=== PATIENT | female | born 1945 | race Caucasian/White ===

== ENCOUNTER 2017-05-26 18:54 | Inpatient (IN) | payer MEDICARE, BC ==
[~2017-05-26] VITALS: Ht 166.4 cm; Wt 91.3 kg
[2017-05-26 18:57] VITALS: BP 210/97; PULSE 72; RESP 20; TEMP 98.9; O2SAT 98
[2017-05-26] MEDS ORDERED: MECL-62 PO (19:44)
[2017-05-26] MEDS ORDERED: ARMO120T PO (19:44)
[2017-05-26] MEDS ORDERED: BUPR150XL PO (19:44)
[2017-05-26] MEDS ORDERED: LORA0.5T PO (19:44)
[2017-05-26] MEDS ORDERED: CITA40TA4 PO (19:44)
[2017-05-26] MEDS ORDERED: CETI10 (19:44)
[2017-05-26] MEDS ORDERED: OXYB10TA PO (19:44)
--- NOTE | 2017-05-26 20:19 | PD ---
HPI Chief Complaint: Musculoskeletal Complaint Time Seen by Provider: 19:34 Travel History International Travel<30 days: No Contact w/Intl Traveler<30days: No Traveled to known affect area: No History of Present Illness HPI Patient is a 71-year-old female presents emergency department after a trip and fall leading to left wrist pain. Patient states she was just walking tripped and fell forward and landed on her left wrist on outstretched hand. Denies any head injury neck injury back injury chest injury abdominal injury right upper extremity injury knee injury. Symptoms started about 45 minutes to arrival, she took 600 mg of ibuprofen prior to arrival with minimal relief. PFSH Past Medical History Anxiety: Yes Depression: Yes Diminished Hearing: Yes (deaf right ear) Immune Disorder: Yes (leukopenia) Medical other: Yes (stage 3 chronic kidney disease) Thyroid Disease: Yes Tetanus Vaccination: > 5 Years Influenza Vaccination: Yes ?: Not Past Surgical History Cholecystectomy: Yes Hysterectomy: Yes Other Surgery: Yes (Rhinoplasty, Labrithectomy) Social History Alcohol Use: Yes (occasional) Tobacco Use: No (quit 50 years ago) Substance Use: No Allergies-Medications (Allergen,Severity, Reaction): Coded Allergies: Paper Wasp (Verified Allergy, Unknown, 05/26/17) Penicillins (Verified Allergy, Unknown, SWELLING, 05/26/17) Sulfa (Sulfonamide Antibiotics) (Verified Allergy, Unknown, SWELLING, ) Tetracyclines (Verified Allergy, Unknown, SWELLING, 05/26/17) aspirin (Verified Allergy, Unknown, SWELLING, 05/26/17) bee venom protein (honey bee) (Verified Allergy, Unknown, 05/26/17) codeine (Verified Allergy, Unknown, SWELLING, 05/26/17) corn (Verified Allergy, Unknown, SWELLING, 05/26/17) egg (Verified Allergy, Unknown, SWELLING, 05/26/17) walnut (Verified Allergy, Unknown, SWELLING, 05/26/17) Reported Meds & Prescriptions Reported Meds & Active Scripts Active Reported Wellbutrin Xl 24 HR (Bupropion HCl) 150 Mg Tab 150 Mg PO DAILY Oxybutynin ER 24 HR (Oxybutynin Chloride) 10 Mg Tab 10 Mg PO DAILY Meclizine (Meclizine HCl) 25 Mg Tab 25 Mg PO DIRECTED PRN Lorazepam 0.5 Mg Tab 0.5 Mg PO Q6H PRN Citalopram (Citalopram Hydrobromide) 40 Mg Tab 40 Mg PO DAILY Cetirizine (Cetirizine HCl) 10 Mg Tab 10 Mg DAILY [place] Thyroid (Thyroid) 120 Mg Tab 120 Mg PO DAILY Review of Systems Except as stated in HPI: all other systems reviewed are Neg Physical Exam Narrative GENERAL: Well-developed well-nourished no obvious SKIN: Focused skin assessment warm/dry. HEAD: Atraumatic. Normocephalic. EYES: Pupils equal and round. No scleral icterus. No injection or drainage. ENT: No nasal bleeding or discharge. Mucous membranes pink and moist. NECK: Trachea midline. No JVD. CARDIOVASCULAR: Regular rate and rhythm. No murmur appreciated. RESPIRATORY: No accessory muscle use. Clear to auscultation. Breath sounds equal bilaterally. GASTROINTESTINAL: Abdomen soft, non-tender, nondistended. Hepatic and splenic margins not palpable. MUSCULOSKELETAL: There is an obvious deformity of the left wrist, minimal volar displacement, pulse motor and sensory intact distally and proximally, no tenderness at the elbow or the hand. Patient's bounding radial pulse, cap refill is brisk in all 5 digits in her flexor and extensor tendon are intact. No clubbing. No cyanosis. No edema. NEUROLOGICAL: Awake and alert. No obvious cranial nerve deficits. Motor grossly within normal limits. Normal speech. PSYCHIATRIC: Appropriate mood and affect; insight and judgment normal. Data Data Last Documented VS Vital Signs Date Time Temp Pulse Resp B/P (MAP) Pulse Ox O2 Delivery O2 Flow Rate FiO2 05/26/17 20:38 72 16 197/84 (121) 98 Room Air 05/26/17 18:57 98.9 Orders Orders Wrist, Complete ([id number]) (05/26/17 ) Splint Or Brace Apply/Monitor (05/26/17 20:17) Support Splint (05/26/17 20:43) Electrocardiogram (05/26/17 21:01) Complete Blood Count With Diff (05/26/17 21:01) Comprehensive Metabolic Panel (05/26/17 21:01) Prothrombin Time / Inr (Pt) (05/26/17 21:01) Act Partial Throm Time (Ptt) (05/26/17 21:01) Chest, Single Ap (05/26/17 21:01) Ecg Monitoring (05/26/17 21:01) Iv Access Insert/Monitor (05/26/17 21:01) Oximetry (05/26/17 21:01) Oxygen Administration (05/26/17 21:01) Sodium Chloride 0.9% Flush (Ns Flush) (05/26/17 21:15) Consult Hand Surgery (05/26/17 ) Ct Wrist W/O Contrast (05/26/17 ) Consent (05/26/17 21:06) Npo After Midnight W/ Po Meds (05/27/17 Breakfast) Admit Order (Ed Use Only) (05/26/17 ) Labs Laboratory Tests Test 05/26/17 20:23 White Blood Count 3.2 TH/MM3 Red Blood Count 4.42 MIL/MM3 Hemoglobin 13.3 GM/DL Hematocrit 39.1 % Mean Corpuscular Volume 88.5 FL Mean Corpuscular Hemoglobin 30.1 PG Mean Corpuscular Hemoglobin Concent 34.1 % Red Cell Distribution Width 12.1 % Platelet Count 124 TH/MM3 Mean Platelet Volume 9.7 FL Neutrophils (%) (Auto) 69.2 % Lymphocytes (%) (Auto) 19.2 % Monocytes (%) (Auto) 10.4 % Eosinophils (%) (Auto) 0.7 % Basophils (%) (Auto) 0.5 % Neutrophils # (Auto) 2.3 TH/MM3 Lymphocytes # (Auto) 0.6 TH/MM3 Monocytes # (Auto) 0.3 TH/MM3 Eosinophils # (Auto) 0.0 TH/MM3 Basophils # (Auto) 0.0 TH/MM3 CBC Comment DIFF FINAL Differential Comment Blood Urea Nitrogen 21 MG/DL Random Glucose 110 MG/DL Albumin 4.4 GM/DL Calcium Level 9.3 MG/DL Sodium Level 133 MEQ/L Potassium Level 3.8 MEQ/L Chloride Level 99 MEQ/L Carbon Dioxide Level 26.8 MEQ/L Anion Gap 7 MEQ/L MDM Medical Decision Making Medical Screen Exam Complete: Yes Emergency Medical Condition: Yes Differential Diagnosis Wrist fracture, restraint, wrist sprain, head neck injury excluded clinically, traumatic injury to other body part highly unlikely. Narrative Course Last 24 hours Impressions Chest X-Ray 05/26/172100 Signed Impressions: Service Date/Time: Friday, May 26, 2017 21:11 - CONCLUSION: No acute disease. Fred Marinelli MD Wrist X-Ray 05/26/17 0000 Signed Impressions: Service Date/Time: Friday, May 26, 2017 19:42 - CONCLUSION: Comminuted fracture at the distal radius and fracture at the base of the ulnar styloid. Fred Marinelli MD Patient's x-ray imaging was discussed with Dr. Bridges who would like to admit the patient to [place] for operative repair. She has reviewed the images. The patient was offered pain medication and declined at this time, she states she gets very nauseous with opiates and would like to decline them. Discussed the recommendations with her and she is agreeable. Diagnosis Primary Impression: Distal radius fracture, left Admitting Information Admitting Physician Requests: Admit Condition: Stable Nigel Alfaro MD May 26, 2017 20:18
--- NOTE | 2017-05-26 20:22 | RADRPT ---
EXAM DATE/TIME: 05/26/2017 19:42 [facility] COMPARISON: No previous studies available for comparison. INDICATIONS : Trauma to wrist. MEDICAL HISTORY : None. SURGICAL HISTORY : None. ENCOUNTER: Initial ACUITY: 1 day PAIN SCORE: 8/10 LOCATION: Left upper extremity wrist FINDINGS: There is a comminuted fracture of the distal radius extending into the radiocarpal joint. The distal fragments are angulated and slightly displaced posteriorly. There is also fracturing of the base of t he ulnar styloid. There is chronic hypertrophic change at the first carpometacarpal joint. CONCLUSION: Comminuted fracture at the distal radius and fracture at the base of the ulnar styloid. Fred Marinelli MD on May 26, 2017 at 20:19 Board Certified Radiologist. This report was verified electronically.
[2017-05-26 20:38] VITALS: BP 197/84; PULSE 72; RESP 16; O2SAT 98
[2017-05-26] MEDS ORDERED: SODIUM CHLORIDE 0.9% FLUSH 10 ML FLUSH IVF PRN (21:15)
[2017-05-26] MEDS: SODIUM CHLOR 0.9% 1000 ML INJ 1,000 ML IV SCH (21:19)
[2017-05-26] MEDS ORDERED: MAGNESIUM HYDROXIDE SUSP 30 ML CUP PO PRN (21:30)
[2017-05-26] MEDS ORDERED: LORazepam 0.5 MG TAB PO PRN (21:30)
[2017-05-26] MEDS ORDERED: BISACODYL 10 MG SUPP RECTAL PRN (21:30)
[2017-05-26] MEDS ORDERED: ONDANSETRON HCL 4 MG/2 ML VIAL IVP PRN (21:30)
[2017-05-26] MEDS ORDERED: SENNOSIDES 8.6 MG TAB PO PRN (21:30)
[2017-05-26] MEDS ORDERED: SODIUM CHLORIDE 0.9% FLUSH 10 ML FLUSH IV FLUSH PRN (21:30)
[2017-05-26] MEDS ORDERED: LACTULOSE SYRUP 20 GM/30 ML CUP PO PRN (21:30)
--- NOTE | 2017-05-26 21:58 | RADRPT ---
EXAM DATE/TIME: 05/26/2017 21:11 [facility] COMPARISON: No previous studies available for comparison. INDICATIONS : Pre-op. Evaluate for pneumonia, pneumothorax, or any other communicable diseases. MEDICAL HISTORY : None. SURGICAL HISTORY : None. ENCOUNTER: Initial ACUITY: 1 day PAIN SCORE: 0/10 LOCATION: Bilateral chest FINDINGS: A single view of the chest demonstrates the lungs to be symmetrically aerated without evidence of mas s, infiltrate or effusion. The cardiomediastinal contours are unremarkable. Osseous structures are intact. CONCLUSION: No acute disease. Fred Marinelli MD on May 26, 2017 at 21:55 Board Certified Radiologist. This report was verified electronically.
[2017-05-26 22:27] VITALS: BP 194/83; PULSE 80; RESP 16; O2SAT 98
--- NOTE | 2017-05-26 22:29 | RADRPT ---
EXAM DATE/TIME: 05/26/2017 21:44 [facility] COMPARISON: No previous studies available for comparison. INDICATIONS : Trauma. Fall. Left wrist fracture. RADIATION DOSE: 13.02 CTDIvol (mGy) MEDICAL HISTORY : Renal failure, chronic. SURGICAL HISTORY : Cholecystectomy. Hysterectomy. ENCOUNTER: Initial ACUITY: 1 day PAIN SCALE: 7/10 LOCATION: Left wrist TECHNIQUE: Volumetric scanning of the wrist was performed. Using automated exposure control and adjustment of t he mA and/or kV according to patient size, radiation dose was kept as low as reasonably achievable to obtain optimal diagnostic quality images. DICOM format image data is available electronically for review and comparison. FINDINGS: BONES: There is a comminuted fracture of the distal radius. This includes a vertical component extending to the distal radius into the radiocarpal joint. There is a horizontal component of the distal radial fr acture extending to the distal radial ulnar joint. The distal radial fragments are displaced and angu lated posteriorly. There is fracturing of the base of the ulnar styloid. There is chronic hypertrophic change at the first carpometacarpal joint. JOINTS: The radiocarpal joint is aligned. SOFT TISSUES: Muscles, tendons, and neurovascular structures are grossly unremarkable. No evidence of mass, organi zed fluid collection or foreign body. CONCLUSION: 1. Comminuted distal radial fracture with intra-articular extension. There is dorsal angulation and d isplacement of the distal fragments. 2. Fracture at the base of the ulnar styloid. 3. Chronic hypertrophic change at the first carpometacarpal joint. Fred Marinelli MD on May 26, 2017 at 22:24 Board Certified Radiologist. This report was verified electronically.
[2017-05-26 22:39] LABS: AUTOMATED NEUTROPHIL # 2.3 TH/MM3 (1.8-7.7); BASOPHIL % 0.5 % (0.0-2.0); EOSINOPHIL % 0.7 % (0.0-4.0); HEMATOCRIT 39.1 % (35.0-46.0); HEMOGLOBIN 13.3 GM/DL (11.6-15.3); LYMPH % 19.2 % (9.0-44.0); LYMPHOCYTE # 0.6 TH/MM3 (1.0-4.8); MEAN CELL VOLUME 88.5 FL (80.0-100.0); MEAN CORPUSCULAR HEMOGLOBIN 30.1 PG (27.0-34.0); MEAN CORPUSCULAR HGB CONC 34.1 % (32.0-36.0); MEAN PLATELET VOLUME 9.7 FL (7.0-11.0); MONO % 10.4 % (0.0-8.0); MONOCYTE # 0.3 TH/MM3 (0-0.9); NEUT % 69.2 % (16.0-70.0); PLATELET COUNT 124 TH/MM3 (150-450); RED BLOOD COUNT 4.42 MIL/MM3 (4.00-5.30); RED CELL DISTRIBUTION WIDTH 12.1 % (11.6-17.2); WHITE BLOOD COUNT 3.2 TH/MM3 (4.0-11.0)
[2017-05-26 22:46] LABS: CHLORIDE 99 MEQ/L (98-107); SODIUM (NA) 133 MEQ/L (136-145)
[2017-05-26 22:49] LABS: CALCIUM 9.3 MG/DL (8.5-10.1)
[2017-05-26 22:50] LABS: ALBUMIN 4.4 GM/DL (3.4-5.0); BICARBONATE 26.8 MEQ/L (21.0-32.0); BLOOD UREA NITROGEN 21 MG/DL (7-18); GLUCOSE,RANDOM 110 MG/DL (74-106)
[2017-05-26 22:53] LABS: ALT (GPT) 19 U/L (10-53); AST (GOT) 18 U/L (15-37); GLOMERULAR FILTRATION RATE 41 ML/MIN (>89)
[2017-05-26 22:54] LABS: TOTAL BILIRUBIN ADULT 0.6 MG/DL (0.2-1.0); TOTAL PROTEIN 7.9 GM/DL (6.4-8.2)
[2017-05-26 22:56] LABS: ALKALINE PHOSPHATASE 72 U/L (45-117)
[2017-05-26 23:00] LABS: PROTHROMBIN TIME - PATIENT 10.1 SEC (9.8-11.6)
[2017-05-26 23:26] VITALS: BP 196/92
[2017-05-27] VITALS (9 sets, daily range): BP systolic 128–190; BP diastolic 68–93; PULSE 66–87; RESP 16–18; TEMP 97.4–99.4; O2SAT 96–98
[2017-05-27] MEDS ORDERED: cloNIDine HCL 0.1 MG TAB PO ONE (00:30)
[2017-05-27] MEDS: ACETAMINOPHEN 325 MG TAB PO PRN (00:38)
[2017-05-27 07:49] LABS: HEMATOCRIT 34.7 % (35.0-46.0); HEMOGLOBIN 12.5 GM/DL (11.6-15.3); MEAN CELL VOLUME 87.7 FL (80.0-100.0); MEAN CORPUSCULAR HEMOGLOBIN 31.5 PG (27.0-34.0); MEAN PLATELET VOLUME 9.4 FL (7.0-11.0); PLATELET COUNT 123 TH/MM3 (150-450); RED BLOOD COUNT 3.96 MIL/MM3 (4.00-5.30); RED CELL DISTRIBUTION WIDTH 12.5 % (11.6-17.2); WHITE BLOOD COUNT 2.1 TH/MM3 (4.0-11.0)
--- NOTE | 2017-05-27 08:04 | HHI.HP ---
HPI Service [facility] Primary Care Physician Unknown Admission Diagnosis Distal Radius Fracture Diagnoses: Travel History International Travel<30 Days: No Contact w/Intl Traveler <30 Da: No Traveled to Known Affected Are: No History of Present Illness 71 year old female with history of hypothyroidism, CKD, leukopenia, and depression presenting with left wrist pain after a mechanical fall. The patient reports she was walking with a pizza box in her hand when she tripped over the door threshold and fell on an outstretched left hand. She is right- handed. She denies LOC, headache, back pain, or neck pain. She states she did not injure any other part of her body. She noticed immediate pain and deformity of the wrist. Pain was exacerbated by movement and minimally relieved with Motrin. Pain is currently 5/10. Review of Systems Except as stated in HPI: all other systems reviewed are Neg Past Family Social History Past Medical History Hypothyroidism CKD Leukopenia (longstanding and previously worked up, followed by hematology) Anxiety Depression R sensorineural hearing loss Past Surgical History Cholecystectomy Hysterectomy Rhinoplasty Labyrinthectomy Reported Medications Wellbutrin Xl 24 HR (Bupropion HCl) 150 Mg Tab 150 Mg PO DAILY Oxybutynin ER 24 HR (Oxybutynin Chloride) 10 Mg Tab 10 Mg PO DAILY Meclizine (Meclizine HCl) 25 Mg Tab 25 Mg PO DIRECTED PRN Lorazepam 0.5 Mg Tab 0.5 Mg PO Q6H PRN Citalopram (Citalopram Hydrobromide) 40 Mg Tab 40 Mg PO DAILY Cetirizine (Cetirizine HCl) 10 Mg Tab 10 Mg DAILY [place] Thyroid (Thyroid) 120 Mg Tab 120 Mg PO DAILY Allergies: Coded Allergies: Paper Wasp (Verified Allergy, Unknown, 05/26/17) Penicillins (Verified Allergy, Unknown, SWELLING, 05/26/17) Sulfa (Sulfonamide Antibiotics) (Verified Allergy, Unknown, SWELLING, ) Tetracyclines (Verified Allergy, Unknown, SWELLING, 05/26/17) aspirin (Verified Allergy, Unknown, SWELLING, 05/26/17) bee venom protein (honey bee) (Verified Allergy, Unknown, 05/26/17) codeine (Verified Allergy, Unknown, SWELLING, 05/26/17) corn (Verified Allergy, Unknown, SWELLING, 05/26/17) egg (Verified Allergy, Unknown, SWELLING, 05/26/17) walnut (Verified Allergy, Unknown, SWELLING, 05/26/17) Active Ordered Medications Acetaminophen (Tylenol) 650 mg Q6H PRN PO Last administered on 05/27/17at 00:38; Admin Dose 650 MG; Start 05/26/17 at 21:30 Bisacodyl (Dulcolax Supp) 10 mg DAILY PRN RECTAL; Start 05/26/17 at 21:30 Bupropion HCl (Wellbutrin Sr) 150 mg DAILY PO; Start 05/27/17 at 09:00 Citalopram Hydrobromide (CeleXA) 40 mg DAILY PO; Start 05/27/17 at 09:00 Clonidine (Catapres) 0.1 mg ONCE ONCE PO Last administered on 05/27/17at 00:39; Admin Dose 0.1 MG; Start 05/27/17 at 00:30; Stop 05/27/17 at 00:35; Status DC Lactulose (Lactulose Liq) 30 ml DAILY PRN PO; Start 05/26/17 at 21:30 Lorazepam (Ativan) 0.5 mg Q6H PRN PO; Start 05/26/17 at 21:30 Magnesium Hydroxide (Milk Of Magnesia Liq) 30 ml Q12H PRN PO; Start 05/26/17 at 21:30 Morphine Sulfate (Morphine Inj) 2 mg Q3H PRN IV PUSH; Start 05/26/17 at 21:30 Ondansetron HCl (Zofran Inj) 4 mg Q6H PRN IVP; Start 05/26/17 at 21:30 Senna/Docusate Sodium (Brooke-Colace) 1 tab BID PO; Start 05/27/17 at 09:00 Sennosides (Senokot) 17.2 mg Q12H PRN PO; Start 05/26/17 at 21:30 Sodium Chloride 1,000 ml @ 100 mls/hr Q10H IV Last administered on 05/26/17at 21: 19; Admin Dose 100 MLS/HR; Start 05/26/17 at 21:19 Sodium Chloride (NS Flush) 2 ml BID IV FLUSH; Start 05/27/17 at 09:00 Sodium Chloride (NS Flush) 2 ml UNSCH PRN IV FLUSH; Start 05/26/17 at 21:30 Sodium Chloride (NS Flush) 2 ml UNSCH PRN IVF; Start 05/26/17 at 21:15; Stop 05/26/17 at 21:32; Status DC Thyroid ([place] Thyroid) 120 mg DAILY PO; Start 05/27/17 at 09:00 Tolterodine Tartrate (Detrol La) 4 mg DAILY PO; Start 05/27/17 at 09:00 Family History Heart disease, breast cancer, hypothyroidism, rheumatoid arthritis Social History Lives in [place] with but has been down in [place] for a month while helping out with her grandchild EtOH: occasional but not daily Tobacco: smoked briefly as a teenager Illicit drugs: denies Physical Exam Vital Signs Vital Signs Date Time Temp Pulse Resp B/P (MAP) Pulse Ox O2 Delivery O2 Flow Rate FiO2 05/27/17 04:00 99.0 66 16 151/72 (98) 96 05/27/17 01:09 99.4 81 18 190/83 (118) 97 05/26/17 23:26 80 16 196/92 (126) 97 05/26/17 22:27 Room Air 05/26/17 22:27 Room Air 05/26/17 22:27 80 16 194/83 (120) 98 Room Air 05/26/17 20:38 72 16 197/84 (121) 98 Room Air 05/26/17 18:57 98.9 72 20 210/97 (134) 98 Physical Exam GENERAL: Well-nourished, well-developed pleasant female laying in bed in no apparent distress. SKIN: No rashes, ecchymoses or lesions. Cool and dry. HEENT: Atraumatic. Normocephalic. No temporal or scalp tenderness. Pupils equal round and reactive. Extraocular motions intact. No scleral icterus. No injection or drainage. Nose without bleeding, purulent drainage or septal hematoma. Throat without erythema, tonsillar hypertrophy or exudate. Uvula midline. Airway patent. NECK: Trachea midline. No JVD or lymphadenopathy. Supple, nontender, no meningeal signs. CARDIOVASCULAR: Regular rate and rhythm with soft 1/6 VAL. RESPIRATORY: Clear to auscultation. Breath sounds equal bilaterally. No wheezes , rales, or rhonchi. GASTROINTESTINAL: Abdomen soft, nontender, nondistended. No guarding. MUSCULOSKELETAL: Extremities without clubbing, cyanosis, or edema. No joint tenderness, effusion, or edema noted with the exception of her right forearm/ arm which is wrapped in a CARLOS-wrap and in a sling. Able to wiggle left fingers and neurovascular intact. No calf tenderness. Negative Homans sign bilaterally. NEUROLOGICAL: Awake and alert. Motor and sensory grossly within normal limits. Normal speech. Laboratory Laboratory Tests Test 05/26/17 20:23 05/27/17 07:33 White Blood Count 3.2 2.1 Red Blood Count 4.42 3.96 Hemoglobin 13.3 12.5 Hematocrit 39.1 34.7 Mean Corpuscular Volume 88.5 87.7 Mean Corpuscular Hemoglobin 30.1 31.5 Mean Corpuscular Hemoglobin Concent 34.1 36.0 Red Cell Distribution Width 12.1 12.5 Platelet Count 124 123 Mean Platelet Volume 9.7 9.4 Neutrophils (%) (Auto) 69.2 Lymphocytes (%) (Auto) 19.2 Monocytes (%) (Auto) 10.4 Eosinophils (%) (Auto) 0.7 Basophils (%) (Auto) 0.5 Neutrophils # (Auto) 2.3 Lymphocytes # (Auto) 0.6 Monocytes # (Auto) 0.3 Eosinophils # (Auto) 0.0 Basophils # (Auto) 0.0 CBC Comment DIFF FINAL AUTO DIFF Differential Comment Prothrombin Time 10.1 Prothromb Time International Ratio 1.0 Activated Partial Thromboplast Time 25.0 Blood Urea Nitrogen 21 Creatinine 1.30 Random Glucose 110 Total Protein 7.9 Albumin 4.4 Calcium Level 9.3 Alkaline Phosphatase 72 Aspartate Amino Transf (AST/SGOT) 18 Alanine Aminotransferase (ALT/SGPT) 19 Total Bilirubin 0.6 Sodium Level 133 Potassium Level 3.8 Chloride Level 99 Carbon Dioxide Level 26.8 Anion Gap 7 Estimat Glomerular Filtration Rate 41 Result Diagram: 05/27/17 0733 05/26/172022 Imaging Chest X-Ray 05/26/172100 Signed Impressions: Service Date/Time: Friday, May 26, 2017 21:11 - CONCLUSION: No acute disease. Fred Marinelli MD Wrist X-Ray 05/26/17 0000 Signed Impressions: Service Date/Time: Friday, May 26, 2017 19:42 - CONCLUSION: Comminuted fracture at the distal radius and fracture at the base of the ulnar styloid. Fred Marinelli MD Upper Extremity CT 05/26/17 0000 Signed Impressions: Service Date/Time: Friday, May 26, 2017 21:44 - CONCLUSION: 1. Comminuted distal radial fracture with intra-articular extension. There is dorsal angulation and displacement of the distal fragments. 2. Fracture at the base of the ulnar styloid. 3. Chronic hypertrophic change at the first carpometacarpal joint. Fred Marinelli MD Caprini VTE Risk Assessment Caprini VTE Risk Assessment: Mod/High Risk (score >= 2) Caprini Risk Assessment Model Point Value = 1 Point Value = 2 Point Value = 3 Point Value = 5 Age 41-60 Minor surgery BMI > 25 kg/m2 Swollen legs Varicose veins or History of unexplained or recurrent spontaneous Oral contraceptives or hormone replacement Sepsis (< 1 month) Serious lung disease, including pneumonia (< 1 month) Abnormal pulmonary function Acute myocardial infarction Congestive heart failure (< 1 month) History of inflammatory bowel disease Medical patient at bed rest Age 61-74 Arthroscopic surgery Major open surgery (> 45 min) Laparoscopic surgery (> 45 min) Malignancy Confined to bed (> 72 hours) Immobilizing plaster cast Central venous access Age >= 75 History of VTE Family history of VTE Factor V Leiden Prothrombin [id number] Lupus anticoagulant Anticardiolipin antibodies Elevated serum homocysteine Heparin-induced thrombocytopenia Other congenital or acquired thrombophilia Stroke (< 1 month) Elective arthroplasty Hip, pelvis, or leg fracture Acute spinal cord injury (< 1 month) Prophylaxis Regimen Total Risk Factor Score Risk Level Prophylaxis Regimen 0-1 Low Early ambulation 2 Moderate Order ONE of the following: *Sequential Compression Device (SCD) *Heparin 5000 units SQ BID 3-4 Higher Order ONE of the following medications: *Heparin 5000 units SQ TID *Enoxaparin/Lovenox 40 mg SQ daily (WT < 150 kg, CrCl > 30 mL/min) *Enoxaparin/Lovenox 30 mg SQ daily (WT < 150 kg, CrCl > 10-29 mL/min) *Enoxaparin/Lovenox 30 mg SQ BID (WT < 150 kg, CrCl > 30 mL/min) AND/OR *Sequential Compression Device (SCD) 5 or more Highest Order ONE of the following medications: *Heparin 5000 units SQ TID (Preferred with Epidurals) *Enoxaparin/Lovenox 40 mg SQ daily (WT < 150 kg, CrCl > 30 mL/min) *Enoxaparin/Lovenox 30 mg SQ daily (WT < 150 kg, CrCl > 10-29 mL/min) *Enoxaparin/Lovenox 30 mg SQ BID (WT < 150 kg, CrCl > 30 mL/min) AND *Sequential Compression Device (SCD) Assessment and Plan Problem List: (1) Distal radius fracture, left ICD Code: S52.502A - Unspecified fracture of the lower end of left radius, initial encounter for closed fracture Status: Acute Assessment and Plan 71 year old female with history of hypothyroidism, leukopenia, CKD, and depression admitted for L wrist fracture after a mechanical fall. 1. Radioulnar fracture - XR demonstrates comminuted fracture of distal radius and fracture at the base of the ulnar styloid - Orthopedic surgery consulted, planning for operative repair - NPO - Pain control 2. Hypothyroidism - Resume home armor thyroid 3. CKD, stage III - Avoid nephrotoxic agents - Renally dose medications 4. Leukopenia - Stable - Followed by heme as oupatient DVT prophylaxis: Hold chemical anticoagulation for surgery Code Status FULL Discussed Condition With Patient Physician Certification 2 Midnight Certification Type: Admission for Inpatient Services Order for Inpatient Services The services are ordered in accordance with Medicare regulations or non- Medicare payer requirements, as applicable. In the case of services not specified as inpatient-only, they are appropriately provided as inpatient services in accordance with the 2-midnight benchmark. Estimated LOS (days): 2 2 days is the estimated time the patient will need to remain in the hospital, assuming treatment plan goals are met and no additional complications. Post-Hospital Plan: Home Jaylene Vnison MD May 27, 2017 08:04
[2017-05-27 08:09] LABS: CHLORIDE 102 MEQ/L (98-107); SODIUM (NA) 135 MEQ/L (136-145)
[2017-05-27 08:37] LABS: LYMPHOCYTES 46 % (9-44); MONOCYTES 17 % (0-8); NEUTROPHIL # MANUAL DIFF 0.8 TH/MM3 (1.8-7.7); POLYS (SEG NEUTROPHILS) 37 % (16-70)
[2017-05-27 08:41] LABS: ALBUMIN 3.6 GM/DL (3.4-5.0); ALKALINE PHOSPHATASE 61 U/L (45-117); ALT (GPT) 15 U/L (10-53); AST (GOT) 15 U/L (15-37); BICARBONATE 25.6 MEQ/L (21.0-32.0); BLOOD UREA NITROGEN 14 MG/DL (7-18); CALCIUM 8.8 MG/DL (8.5-10.1); CREATININE 0.97 MG/DL (0.50-1.00); GLOMERULAR FILTRATION RATE 57 ML/MIN (>89); GLUCOSE,RANDOM 99 MG/DL (74-106); TOTAL BILIRUBIN ADULT 0.8 MG/DL (0.2-1.0); TOTAL PROTEIN 6.8 GM/DL (6.4-8.2)
[2017-05-27] MEDS ORDERED: LACTATED RINGER'S 1000 ML INJ 1,000 ML ONE (08:49)
[2017-05-27] MEDS ORDERED: MIDAZOLAM HCL 5 MG/ML VIAL (1 ML) ONE (08:49)
[2017-05-27] MEDS ORDERED: CLINDAMYCIN 600 MG/NS PREMIX 50 ML IV ONE (09:15)
[2017-05-27] MEDS ORDERED: LIDOCAINE HCL 2% 50 ML VIAL ONE (09:33)
[2017-05-27] MEDS ORDERED: BACITRACIN TOP OINT 15 GM TUBE ONE (09:33)
--- NOTE | 2017-05-27 12:31 | RADRPT ---
EXAM DATE/TIME: 05/27/2017 09:54 [facility] COMPARISON: WRIST LEFT COMPLETE ([id number]), May 26, 2017, 19:42. INDICATIONS : Left wrist ORIF. MEDICAL HISTORY : None. SURGICAL HISTORY : None. ENCOUNTER: Initial ACUITY: 1 day PAIN SCORE: Non-responsive. LOCATION: Left Wrist. FINDINGS: Multiple fluoroscopic views of the fractured left radius and ulna are performed for open reduction in ternal fixation. Surgical plate and screws traverse the distal radial fracture with ultimate good rhina tomic alignment. CONCLUSION: Status post left wrist ORIF with ultimate good anatomic alignment.. Jenny Brown MD on May 27, 2017 at 12:27 Board Certified Radiologist. This report was verified electronically.
--- NOTE | 2017-05-27 13:42 | PD.ORT.PN ---
Subjective Subjective Remarks Patient comfortable in PACU. s/p regional block. Spoke with over the phone about procedure. Objective Vitals Vital Signs Date Time Temp Pulse Resp B/P (MAP) Pulse Ox O2 Delivery O2 Flow Rate FiO2 05/27/17 13:30 70 14 159/66 (97) 100 Nasal Cannula 2 05/27/17 13:15 69 14 150/60 (90) 100 Nasal Cannula 2 05/27/17 13:00 73 14 144/64 (90) 100 Nasal Cannula 2 05/27/17 12:54 76 05/27/17 12:54 97.7 76 14 153/77 (102) 97 Nasal Cannula 2 05/27/17 09:20 80 05/27/17 09:20 98 Nasal Cannula 2 05/27/17 08:58 74 05/27/17 08:58 98 Nasal Cannula 2 05/27/17 08:30 98.1 69 18 154/68 (96) 95 05/27/17 08:00 98.1 69 18 154/68 (96) 96 05/27/17 04:00 99.0 66 16 151/72 (98) 96 05/27/17 01:09 99.4 81 18 190/83 (118) 97 05/26/17 23:26 80 16 196/92 (126) 97 05/26/17 22:27 Room Air 05/26/17 22:27 Room Air 05/26/17 22:27 80 16 194/83 (120) 98 Room Air 05/26/17 20:38 72 16 197/84 (121) 98 Room Air 05/26/17 18:57 98.9 72 20 210/97 (134) 98 I/O 05/26/17 05/26/17 05/26/17 05/27/17 05/27/17 05/27/17 07:00 15:00 23:00 07:00 15:00 23:00 Intake Total 900 ml Output Total 100 ml Balance 800 ml Intake Other 900 ml Output Urine Total 0 ml Estimated Blood Loss 100 ml # Voids 3 # Bowel Movements 0 Result Diagram: 05/27/17 0733 05/27/17 0733 Other Results Laboratory Tests Test 05/26/17 20:23 Prothromb Time International Ratio 1.0 RATIO Prothrombin Time 10.1 SEC (9.8-11.6) Imaging Last 24 hours Impressions Wrist X-Ray 05/27/17 0000 Signed Impressions: Service Date/Time: Saturday, May 27, 2017 09:54 - CONCLUSION: Status post left wrist ORIF with ultimate good anatomic alignment.. Jenny Brown MD Chest X-Ray 05/26/172100 Signed Impressions: Service Date/Time: Friday, May 26, 2017 21:11 - CONCLUSION: No acute disease. Fred Marinelli MD Objective Remarks Sugartong splint in place, <2 sec capillary refill to fingers, unable to assess sensation or motor function due to block Assessment & Plan Assessment and Plan 71yF pmhx significant for leukopenia and CKD POD0 s/p ORIF L distal radius fracture & left carpal tunnel release -Pain management per primary team -Will consider hematology consult due to leukopenia -NWB left wrist, elevate left hand -Possible d/c home tomorrow with 2 week followup in office Sally Bridges MD May 27, 2017 13:42
--- NOTE | 2017-05-27 13:53 | MB ---
cc: Sally Bridges MD DATE: 05/27/2017 REASON FOR CONSULTATION: Closed displaced left distal radius fracture. HISTORY OF PRESENT ILLNESS: Uma Muñoz is a pleasant 71-year-old right hand dominant female who lives in [place] who was visiting her children and grandchildren and will be here until approximately June or July, who accidentally sustained a mechanical fall last evening on 05/26/2017 onto her left wrist. She presented to the emergency room for evaluation. I was called for consult. The patient denied significant paresthesias in the hand. She reports an old injury to the left wrist, but nothing recent. She does have a past medical history significant for leukopenia. She also has a history of chronic kidney disease. She reports pain over the left wrist. She was placed into a splint by the emergency room. PAST MEDICAL HISTORY: Hypothyroidism, chronic kidney disease, leukopenia, hearing loss. PAST SURGICAL HISTORY: Cholecystectomy, hysterectomy, rhinoplasty, labyrinthectomy. MEDICATIONS: Wellbutrin, oxybutynin, meclizine, citalopram. ALLERGIES: PENICILLIN, SULFA, TETRACYCLINE, ASPIRIN. PHYSICAL EXAMINATION: The patient is alert and oriented. Exam of the left upper extremity shows a splint in place. Sensation intact in the median, ulnar and radial distribution. Less than 2 second capillary refill. The patient is able to wiggle the fingers. Splint left in place until planned surgery. IMAGING: X-rays and CT scan show a closed intra-articular significantly displaced distal radius fracture. ASSESSMENT AND PLAN: A 71-year-old right hand dominant female, 1 day status post closed significantly displaced and comminuted left distal radius fracture. Past medical history is significant for leukopenia and chronic kidney disease. Treatment options discussed with the patient. She elected to proceed with surgical intervention. Risks were explained but not limited to wound complications, infection, nonunion, malunion, need for hardware removal, paresthesias and she elected to proceed. This was planned for today after she was cleared by medicine. It was discussed with the patient she is at a higher than normal risk for infection due to her leukopenia. Consider consulting hematology oncology. Sally Bridges MD [facility]/ , 01:29 PM , 01:52 PM MARISSA
--- NOTE | 2017-05-27 14:08 | MP ---
cc: Sally Bridges MD DATE OF OPERATION: PREOPERATIVE DIAGNOSIS: Closed intraarticular displaced greater than 3-part left distal radius fracture. POSTOPERATIVE DIAGNOSIS: Closed intraarticular displaced greater than 3-part left distal radius fracture. PROCEDURE: 1. Open reduction and internal fixation left distal radius fracture, greater than 3-part. 2. Left carpal tunnel release. 3. Application of allograft bone graft. SURGEON: Dr. Sally Bridges. ANESTHESIA: Regional and sedation. TOURNIQUET TIME: 126 minutes at 200 mmHg. IMPLANTS: One Synthes volar rim plate with combination of nonlocking and locking screws. INDICATION FOR PROCEDURE: Uma Muñoz is a pleasant 71-year-old right hand dominant female who presented to the emergency room yesterday with a closed significantly displaced left distal radius fracture. The patient has a past medical history significant for leukopenia, as well as chronic kidney disease. She elected to proceed with surgical intervention. She understands there are multiple surgical options including closed reduction and pinning, open reduction internal fixation and dorsal spanning plate and she elected to proceed. Risks were explained but not limited to wound complications, infection, nonunion and malunion, and need for hardware removal, need for additional surgeries and she elected to proceed. DESCRIPTION OF PROCEDURE: The patient was identified in the preoperative holding area and the correct extremity was marked. The patient was taken to the operating room where anesthesia was induced. Left upper extremity was prepped and draped in normal sterile fashion. Dr. Freed of Anesthesia performed a regional block. Under fluoroscopy, there was a closed intra-articular displaced distal radius fracture with a large radial styloid piece which was radially displaced, as well as a lunate facet piece. The patient lives in [place], so I was concerned about placing a dorsal spanning plate as the patient would have to obtain a followup for removal of the plate. The decision was made to start with a standard volar approach. Tourniquet was inflated to 200 mmHg for 126 minutes. A standard volar approach was utilized. Flexor carpi radialis tendon sheath was incised. Care was taken to protect the radial artery and median nerve, as well as flexor pollicis longus. The pronator quadratus was incised. The fracture was identified. Again, there was a radial styloid piece as well as a lunate facet piece with significant comminution. Using manual traction and K-wires the fracture was reduced. I was unable to hold the fracture with a standard Synthes plate. I decided to proceed with a Synthes volar rim plate. This had good capture of the fragments. I proceeded with using the Synthes volar rim plate. Again, initially the plate was held in place with K-wires and then a nonlocking screw was placed into the shaft. A combination of locking screws was placed with at least 2 screws in both the radial styloid and ulnar fragments. This had good stability with flexion and extension of the wrist under direct inspection. The remainder of the locking screws were placed. A carpal tunnel release was performed to prevent any problems with the carpal tunnel especially since I used the volar rim plate which is more distal. A standard incision was made in line with the radial border of the ring finger. Palmar fascia was identified and incised. Transverse carpal ligament was identified and incised. Care was taken to protect the ulnar nerve, ulnar artery, palmar arch and to completely decompress the antebrachial fascia. Tourniquet was released. Hemostasis was obtained. The patient had less than 2 second capillary refill to the fingers. The carpal tunnel incision was closed with 5-0 nylon. Some DBX Synthes allograft bone graft was placed around the fracture. The skin was closed with 3-0 and 4-0 Monocryl and Steri-Strips. The patient was placed into a sugar-tong splint and awoken from anesthesia without any complications. She will remain in the hospital on the antibiotics. I will consult Hematology/Oncology. When she is discharged I will see her in approximately two weeks in the office. Continue to follow her while she is here hopefully through June or July. Sally Bridges MD [facility] , 01:34 PM , 02:07 PM MARISSA
[2017-05-27] MEDS ORDERED: LACTATED RINGER'S 1000 ML IV PRN (14:15)
[2017-05-27] MEDS ORDERED: SODIUM CHLORID 0.9% 500 ML IV PRN (14:15)
[2017-05-27] MEDS ORDERED: POVIDONE IODINE 5% (ANTISEPSIS KIT) 4 APPLICATIONS EACH NARE PRN (14:15)
[2017-05-27] MEDS ORDERED: CHLORHEXIDINE GLUCONATE 2 % 1 PACK (2 CLOTHS) TOPICAL PRN (14:15)
[2017-05-27] MEDS ORDERED: METOPROLOL TARTRATE 25 MG TAB PO PRN (14:15)
[2017-05-27] MEDS: TOLTERODINE TARTRATE 4 MG CAP LA PO SCH (14:29)
[2017-05-27] MEDS: buPROPion HCL 150 MG SUSTAINED RELEASE TAB PO SCH (14:29)
[2017-05-27] MEDS: THYROID 60 MG TAB PO SCH (14:29)
[2017-05-27] MEDS: SODIUM CHLORIDE 0.9% FLUSH 10 ML FLUSH IV FLUSH SCH ×2 (14:30→21:00)
[2017-05-27] MEDS: DOCUSATE SODIUM 50 MG/SENNA 8.6 MG TAB PO SCH ×2 (14:30→21:00)
[2017-05-27] MEDS: SODIUM CHLOR 0.9% 1000 ML INJ 1,000 ML IV SCH ×2 (14:30→17:53)
[2017-05-27] MEDS: CITALOPRAM HYDROBROMIDE 40 MG TAB PO SCH (14:30)
[2017-05-27] MEDS: CLINDAMYCIN 600 MG/NS PREMIX 50 ML IV SCH (18:03)
[2017-05-28] VITALS: BP 156/73; PULSE 80; RESP 18; TEMP 98.6; O2SAT 98
[2017-05-28] MEDS: MORPHINE SULFATE 2 MG/ML SYRINGE IV PUSH PRN ×6 (00:05→21:50)
[2017-05-28] MEDS: SODIUM CHLOR 0.9% 1000 ML INJ 1,000 ML IV SCH (00:06)
[2017-05-28] MEDS: CLINDAMYCIN 600 MG/NS PREMIX 50 ML IV SCH (00:06)
[2017-05-28] MEDS ORDERED: MORPHINE SULFATE 4 MG/ML INJ IV PUSH ONE (02:00)
[2017-05-28 04:00] VITALS: BP 158/80; PULSE 82; RESP 18; TEMP 99.2; O2SAT 97
[2017-05-28 08:00] VITALS: BP 157/77; PULSE 77; RESP 18; TEMP 100.1; O2SAT 93
[2017-05-28] MEDS: buPROPion HCL 150 MG SUSTAINED RELEASE TAB PO SCH (09:00)
[2017-05-28] MEDS: DOCUSATE SODIUM 50 MG/SENNA 8.6 MG TAB PO SCH ×2 (09:00→21:49)
[2017-05-28] MEDS: SODIUM CHLORIDE 0.9% FLUSH 10 ML FLUSH IV FLUSH SCH ×2 (09:00→21:49)
--- NOTE | 2017-05-28 09:32 | EKG ---
Date Performed: 05/26/2017 Time Performed: 21:34:32 PTAGE: 71 years EKG: Sinus rhythm Borderline increased QRS voltage for LVH Possible inferior wall myocardial infarction of undetermine d age NO PREVIOUS TRACING DOCTOR: Richie Luis Interpretating Date/Time 05/28/2017 09:30:48
--- NOTE | 2017-05-28 09:41 | HHI.PR ---
Subjective Remarks Patient seen and examined today for follow-up on distal radius fracture. Patient states that the pain is controlled with the morphine. I did discuss with her that need to try to convert her to p.o. medication for longer acting pain control. Patient does understand. She denies any new complaints. Vital signs are stable, patient remains afebrile. Objective Vitals Vital Signs Date Time Temp Pulse Resp B/P (MAP) Pulse Ox O2 Delivery O2 Flow Rate FiO2 05/28/17 08:00 100.1 77 18 157/77 (103) 93 05/28/17 04:00 99.2 82 18 158/80 (106) 97 05/28/17 00:00 98.6 80 18 156/73 (100) 98 05/27/17 20:00 97.4 74 16 144/69 (94) 98 05/27/17 16:00 98.7 87 18 128/93 (105) 97 05/27/17 13:45 98.6 70 14 159/66 (97) 96 Room Air 05/27/17 13:45 70 05/27/17 13:30 70 14 159/66 (97) 100 Nasal Cannula 2 05/27/17 13:15 69 14 150/60 (90) 100 Nasal Cannula 2 05/27/17 13:00 73 14 144/64 (90) 100 Nasal Cannula 2 05/27/17 12:54 76 05/27/17 12:54 97.7 76 14 153/77 (102) 97 Nasal Cannula 2 I/O 05/27/17 05/27/17 05/27/17 05/28/17 05/28/17 05/28/17 07:00 15:00 23:00 07:00 15:00 23:00 Intake Total 2050 ml 1490 ml 200 ml Output Total 100 ml 300 ml Balance 1950 ml 1190 ml 200 ml Intake Oral 0 ml 840 ml 200 ml IV Total 1050 ml 650 ml Other 1000 ml Output Urine Total 0 ml 300 ml Estimated Blood Loss 100 ml # Voids 3 5 # Bowel Movements 0 Result Diagram: 05/27/1773205/27/17732 Objective Remarks GENERAL: Well-developed, well-nourished, in no acute distress. alert and orientated HEENT: Head is normocephalic without any lesions or masses noted. Facial features are symmetric. Eyes: Extraocular muscles are intact. Conjunctivae were clear. NECK: Supple without any masses. Trachea midline no deviation. No JVD, CARDIAC: Regular rhythm, regular rate. S1/S2 are heard. No murmurs gallops or rubs. LUNGS: Clear to auscultation bilaterally. No wheeze, rhonchi or rales. No use of accessory muscles on inspiration or expiration. ABDOMEN: Soft, nontender. Nondistended. Bowel sounds heard in all 4 quadrants. No organomegaly or masses. Negative rebound, negative guarding EXTREMITIES: No edema, pulses are equal bilaterally. No cyanosis or clubbing. Left upper extremity with cast and sling NEUROLOGY: Mood and affect appear appropriate. Cranial nerves II through XII grossly intact. Moving all extremities, speech is clear Urinary Catheter: No Vascular Central Line Catheter: No A/P Assessment and Plan Left upper extremity radioulnar fracture X-ray indicated comminuted fracture of distal radius and fracture at the base of the ulnar styloid Orthopedic surgery consulted and patient underwent surgical intervention Continue pain control Leukopenia Absolute neutrophil count 777, Continue follow CBC Obtain outside records from patient's outpatient warrant clerk Discussed with warrant clerk who stated the patient is appropriate for inpatient or outpatient consult and possible reevaluation with bone marrow biopsy Hypothyroidism Replacement therapy has been continued Chronic kidney disease stage III Renal functions are improving Continue monitor electrolytes and replace as needed Anxiety Home medications have been continued Ativan as needed DVT prevention Sequential compression devices Discharge Planning Discharge planning once cleared by orthopedist and pain control Bienvenido [place] May 28, 2017 09:41
[2017-05-28] MEDS ORDERED: traMADol HCL 50 MG TAB PO PRN ×2 (09:45)
[2017-05-28] MEDS: THYROID 60 MG TAB PO SCH (10:05)
[2017-05-28] MEDS: TOLTERODINE TARTRATE 4 MG CAP LA PO SCH (10:06)
[2017-05-28] MEDS: CITALOPRAM HYDROBROMIDE 40 MG TAB PO SCH (10:06)
[2017-05-28] MEDS: amLODIPine BESYLATE 5 MG TAB PO SCH (10:40)
[2017-05-28 12:00] VITALS: BP 159/83; PULSE 76; RESP 20; TEMP 99.1; O2SAT 92
[2017-05-28] MEDS ORDERED: oxyCODONE/ACETAMINOPHEN 10 MG/325 MG TAB PO PRN (17:00)
[2017-05-28] MEDS ORDERED: oxyCODONE/ACETAMINOPHEN 5 MG/325 MG TAB PO PRN (17:00)
[2017-05-28 18:00] VITALS: BP 151/74; PULSE 78; RESP 16; TEMP 95.7; O2SAT 93
[2017-05-28 20:00] VITALS: BP 120/61; PULSE 68; RESP 18; TEMP 97.7; O2SAT 98
--- NOTE | 2017-05-28 22:32 | PD.ORT.PN ---
Subjective Subjective Remarks Patient reports pain controlled. Denies paresthesias. Has been keeping arm in sling. Objective Vitals Vital Signs Date Time Temp Pulse Resp B/P (MAP) Pulse Ox O2 Delivery O2 Flow Rate FiO2 05/28/17 20:00 97.7 68 18 120/61 (80) 98 05/28/17 18:00 95.7 78 16 151/74 (99) 93 05/28/17 12:00 99.1 76 20 159/83 (108) 92 05/28/17 08:00 100.1 77 18 157/77 (103) 93 05/28/17 04:00 99.2 82 18 158/80 (106) 97 05/28/17 00:00 98.6 80 18 156/73 (100) 98 I/O 05/27/17 05/27/17 05/27/17 05/28/17 05/28/17 05/28/17 07:00 15:00 23:00 07:00 15:00 23:00 Intake Total 2050 ml 1490 ml 940 ml Output Total 100 ml 300 ml Balance 1950 ml 1190 ml 940 ml Intake Oral 0 ml 840 ml 440 ml IV Total 1050 ml 650 ml 500 ml Other 1000 ml Output Urine Total 0 ml 300 ml Estimated Blood Loss 100 ml # Voids 3 5 # Bowel Movements 0 Result Diagram: 05/27/17 0733 05/27/17 0733 Imaging Last 24 hours Impressions Wrist X-Ray 05/27/17 0000 Signed Impressions: Service Date/Time: Saturday, May 27, 2017 09:54 - CONCLUSION: Status post left wrist ORIF with ultimate good anatomic alignment.. Jenny Brown MD Chest X-Ray 05/26/172100 Signed Impressions: Service Date/Time: Friday, May 26, 2017 21:11 - CONCLUSION: No acute disease. Fred Marinelli MD Objective Remarks Sugartong splint in place, <2 sec capillary refill to fingers, sensation intact to light touch median/ulnar/radial distribution, able to flex/extend fingers, moderate swelling to fingers, sling in place Assessment & Plan Assessment and Plan 71yF pmhx significant for leukopenia and CKD POD1 s/p ORIF L distal radius fracture & left carpal tunnel release -NWB left wrist, elevate left hand. Please elevate hand above arm on pillows. Patient and nurse instructed on proper position -Continue antibiotics -Possible d/c home Wed with followup in office 06/07 Sally Bridges MD May 28, 2017 22:32
[2017-05-29] VITALS: BP 118/70; PULSE 72; RESP 17; TEMP 97.5; O2SAT 96
[2017-05-29] MEDS: MORPHINE SULFATE 2 MG/ML SYRINGE IV PUSH PRN ×3 (05:01→22:30)
[2017-05-29 08:00] VITALS: BP 158/75; PULSE 88; RESP 16; TEMP 99.3; O2SAT 92
[2017-05-29] MEDS: buPROPion HCL 150 MG SUSTAINED RELEASE TAB PO SCH (09:00)
[2017-05-29] MEDS: THYROID 60 MG TAB PO SCH (09:57)
[2017-05-29] MEDS: SODIUM CHLORIDE 0.9% FLUSH 10 ML FLUSH IV FLUSH SCH ×2 (09:57→20:35)
[2017-05-29] MEDS: DOCUSATE SODIUM 50 MG/SENNA 8.6 MG TAB PO SCH ×2 (09:58→20:35)
[2017-05-29] MEDS: amLODIPine BESYLATE 5 MG TAB PO SCH (09:58)
[2017-05-29] MEDS: TOLTERODINE TARTRATE 4 MG CAP LA PO SCH (09:58)
[2017-05-29] MEDS: CITALOPRAM HYDROBROMIDE 40 MG TAB PO SCH (10:45)
--- NOTE | 2017-05-29 11:26 | HHI.PR ---
Subjective Remarks Patient seen and examined today for follow-up of left wrist fracture. Patient is doing well. States that pain is controlled with medication. He denies any new complaints. Patient remains afebrile Objective Vitals Vital Signs Date Time Temp Pulse Resp B/P (MAP) Pulse Ox O2 Delivery O2 Flow Rate FiO2 05/29/17 08:00 99.3 88 16 158/75 (102) 92 05/29/17 06:01 18 05/29/17 00:00 97.5 72 17 118/70 (86) 96 05/28/17 20:00 97.7 68 18 120/61 (80) 98 05/28/17 18:00 95.7 78 16 151/74 (99) 93 05/28/17 12:00 99.1 76 20 159/83 (108) 92 I/O 05/28/17 05/28/17 05/28/17 05/29/17 05/29/17 05/29/17 07:00 15:00 23:00 07:00 15:00 23:00 Intake Total 940 ml Balance 940 ml Intake Oral 440 ml IV Total 500 ml # Voids 3 Result Diagram: 05/27/1773205/27/1733 Objective Remarks GENERAL: Well-developed, well-nourished, in no acute distress. alert and orientated HEENT: Head is normocephalic without any lesions or masses noted. Facial features are symmetric. Eyes: Extraocular muscles are intact. Conjunctivae were clear. NECK: Supple without any masses. Trachea midline no deviation. No JVD, CARDIAC: Regular rhythm, regular rate. S1/S2 are heard. No murmurs gallops or rubs. LUNGS: Clear to auscultation bilaterally. No wheeze, rhonchi or rales. No use of accessory muscles on inspiration or expiration. ABDOMEN: Soft, nontender. Nondistended. Bowel sounds heard in all 4 quadrants. No organomegaly or masses. Negative rebound, negative guarding EXTREMITIES: No edema, pulses are equal bilaterally. No cyanosis or clubbing. Left upper extremity with cast. Cap refill intact NEUROLOGY: Mood and affect appear appropriate. Cranial nerves II through XII grossly intact. Moving all extremities, speech is clear Urinary Catheter: No Vascular Central Line Catheter: No A/P Assessment and Plan Left upper extremity radioulnar fracture X-ray indicated comminuted fracture of distal radius and fracture at the base of the ulnar styloid Orthopedic surgery consulted and patient underwent surgical intervention Reviewed medical records and hand specialist indicates that possible discharge tomorrow Continue pain control Leukopenia Absolute neutrophil count 777, Continue follow CBC Obtain outside records from patient's outpatient compounder helper Discussed with compounder helper who stated the patient is appropriate for inpatient or outpatient consult and possible reevaluation with bone marrow biopsy Hypothyroidism Replacement therapy has been continued Chronic kidney disease stage III Renal functions are improving Continue monitor electrolytes and replace as needed Anxiety Home medications have been continued Ativan as needed DVT prevention Sequential compression devices Discharge Planning Discharge planning once cleared by orthopedist. Bienvenido [place] May 29, 2017 11:26
[2017-05-29 12:00] VITALS: BP 157/72; PULSE 78; RESP 16; TEMP 100.3; O2SAT 95
[2017-05-29] MEDS: ACETAMINOPHEN 325 MG TAB PO PRN (12:04)
[2017-05-29 16:44] VITALS: BP 127/61; PULSE 73; RESP 16; TEMP 98.5; O2SAT 96
[2017-05-29 20:00] VITALS: BP 153/75; PULSE 73; RESP 20; TEMP 97.7; O2SAT 98
[2017-05-30] VITALS: BP 156/74; PULSE 72; RESP 20; TEMP 100.1; O2SAT 96
[2017-05-30 04:00] VITALS: TEMP 99.6
[2017-05-30] MEDS: MORPHINE SULFATE 2 MG/ML SYRINGE IV PUSH PRN (06:21)
[2017-05-30 07:50] VITALS: BP 146/76; PULSE 70; RESP 20; TEMP 98.7
[2017-05-30] MEDS: amLODIPine BESYLATE 5 MG TAB PO SCH (08:23)
[2017-05-30] MEDS: TOLTERODINE TARTRATE 4 MG CAP LA PO SCH (08:23)
[2017-05-30] MEDS: SODIUM CHLORIDE 0.9% FLUSH 10 ML FLUSH IV FLUSH SCH (08:23)
[2017-05-30] MEDS: THYROID 60 MG TAB PO SCH (08:23)
[2017-05-30] MEDS: CITALOPRAM HYDROBROMIDE 40 MG TAB PO SCH (08:23)
[2017-05-30] MEDS: buPROPion HCL 150 MG SUSTAINED RELEASE TAB PO SCH (08:24)
[2017-05-30] MEDS: DOCUSATE SODIUM 50 MG/SENNA 8.6 MG TAB PO SCH (08:25)
[2017-05-30 09:57] LABS: HEMOGLOBIN 10.9 GM/DL (11.6-15.3); MEAN CELL VOLUME 88.7 FL (80.0-100.0); MEAN CORPUSCULAR HEMOGLOBIN 31.2 PG (27.0-34.0); MEAN CORPUSCULAR HGB CONC 35.1 % (32.0-36.0); MEAN PLATELET VOLUME 9.6 FL (7.0-11.0); PLATELET COUNT 102 TH/MM3 (150-450); RED CELL DISTRIBUTION WIDTH 12.2 % (11.6-17.2); WHITE BLOOD COUNT 1.8 TH/MM3 (4.0-11.0)
[2017-05-30 10:39] LABS: LYMPHOCYTES 51 % (9-44); MONOCYTES 16 % (0-8); NEUTROPHIL # MANUAL DIFF 0.6 TH/MM3 (1.8-7.7); POLYS (SEG NEUTROPHILS) 33 % (16-70)
[2017-05-30] MEDS ORDERED: TRAM50TA PO (10:43)
[2017-05-30] MEDS ORDERED: AMLO5 PO (10:43)
[2017-05-30] MEDS ORDERED: CEPH-460 PO (10:43)
--- NOTE | 2017-05-30 10:43 | HHI.DCPOC ---
Discharge Care Plan Diagnosis: (1) Distal radius fracture, left Goals to Promote Your Health * To prevent worsening of your condition and complications * To maintain your health at the optimal level Directions to Meet Your Goals Take your medications as prescribed Follow your dietary instruction Follow activity as directed Keep your appointments as scheduled Take your immunizations and boosters as scheduled If your symptoms worsen call your PCP, if no PCP go to Urgent Care Center or Emergency Room Smoking is Dangerous to Your Health. Avoid second hand smoke Call the 24-hour hour crisis hotline for domestic abuse at B[facility]ven[facility] [place] May 30, 2017 10:43
--- NOTE | 2017-05-30 15:30 | HHI.DS ---
Discharge Summary Admission Date May 26, 2017 at 21:22 Discharge Date: May 30, 2017 Admitting Diagnosis Distal Radius Fracture (1) Distal radius fracture, left ICD Code: S52.502A - Unspecified fracture of the lower end of left radius, initial encounter for closed fracture Status: Acute Procedures PROCEDURE: 1. Open reduction and internal fixation left distal radius fracture, greater than 3-part. 2. Left carpal tunnel release. 3. Application of allograft bone graft. Brief History - From Admission 71 year old female with history of hypothyroidism, CKD, leukopenia, and depression presenting with left wrist pain after a mechanical fall. The patient reports she was walking with a pizza box in her hand when she tripped over the door threshold and fell on an outstretched left hand. She is right- handed. She denies LOC, headache, back pain, or neck pain. She states she did not injure any other part of her body. She noticed immediate pain and deformity of the wrist. Pain was exacerbated by movement and minimally relieved with Motrin. Pain is currently 5/10. CBC/BMP: 05/30/17 0930 05/27/17 0733 Significant Findings Laboratory Tests Test 05/30/17 09:30 White Blood Count 1.8 TH/MM3 (4.0-11.0) Red Blood Count 3.50 MIL/MM3 (4.00-5.30) Hemoglobin 10.9 GM/DL (11.6-15.3) Hematocrit 31.0 % (35.0-46.0) Platelet Count 102 TH/MM3 (150-450) Lymphocytes % 51 % (9-44) Monocytes % 16 % (0-8) Neutrophils # (Manual) 0.6 TH/MM3 (1.8-7.7) Platelet Estimate LOW (NORMAL) Imaging Last Impressions Wrist X-Ray 05/27/17 0000 Signed Impressions: Service Date/Time: Saturday, May 27, 2017 09:54 - CONCLUSION: Status post left wrist ORIF with ultimate good anatomic alignment.. Jenny Brown MD Chest X-Ray 05/26/172100 Signed Impressions: Service Date/Time: Friday, May 26, 2017 21:11 - CONCLUSION: No acute disease. Fred Marinelli MD Upper Extremity CT 05/26/17 0000 Signed Impressions: Service Date/Time: Friday, May 26, 2017 21:44 - CONCLUSION: 1. Comminuted distal radial fracture with intra-articular extension. There is dorsal angulation and displacement of the distal fragments. 2. Fracture at the base of the ulnar styloid. 3. Chronic hypertrophic change at the first carpometacarpal joint. Fred Marinelli MD PE at Discharge GENERAL: Well-developed, well-nourished, in no acute distress. alert and orientated HEENT: Head is normocephalic without any lesions or masses noted. Facial features are symmetric. Eyes: Extraocular muscles are intact. Conjunctivae were clear. NECK: Supple without any masses. Trachea midline no deviation. No JVD, CARDIAC: Regular rhythm, regular rate. S1/S2 are heard. No murmurs gallops or rubs. LUNGS: Clear to auscultation bilaterally. No wheeze, rhonchi or rales. No use of accessory muscles on inspiration or expiration. ABDOMEN: Soft, nontender. Nondistended. Bowel sounds heard in all 4 quadrants. No organomegaly or masses. Negative rebound, negative guarding EXTREMITIES: No edema, pulses are equal bilaterally. No cyanosis or clubbing. Left upper extremity with cast. Cap refill intact NEUROLOGY: Mood and affect appear appropriate. Cranial nerves II through XII grossly intact. Moving all extremities, speech is clear Hospital Course Is a 71-year-old female with known history of hypothyroidism, chronic kidney disease, leukopenia who presented after a fall at home. She tripped over the door threshold on outstretched hand and has significant pain on the left wrist after fall. Patient came to emergency department and found to have comminuted distal radial fracture and intra-articular extension. There is displacement of the distal fragments. Fracture of the base of the ulnar styloid. Hand specialist was consulted and took the patient to surgery for surgical intervention. Patient did undergo open reduction internal fixation left distal radius fracture greater than 3 part, left carpal tunnel release, application of allograft bone graft. Patient does have chronic history of leukopenia. 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 Patient did have leukopenia here at the hospital with white cell count of 3.2 which continued to go down to 1.8. Patient did show me her home records over the last year where her white cell count runs anywhere from 1.7-2.1. I have discussed the case with oncology/hematology who indicates that patient could benefit from outpatient workup upon discharge. Would recommend 5 days worth of antibiotics upon discharge and outpatient follow-up. Patient does understand and does agree. She is eager to go home. Patient will contact local patent prosecution paralegal/oncologist for outpatient appointment. Patient will continue follow-up with Dr. Bridges for her recent fracture. Patient clinically stable. We will plan discharge accordingly. Pt Condition on Discharge: Stable Discharge Disposition: Discharge Home Discharge Time: > 30 minutes Discharge Instructions DIET: Follow Instructions for: As Tolerated, No Restrictions Activities you can perform: Regular-No Restrictions Follow up Referrals: Hand Surgery - [address] Bridges PCP Follow-up - 1 Week New Medications: Cephalexin (Keflex) 500 Mg Cap 500 MG PO Q6H for Infection for 5 Days, #20 CAP 0 Refills Tramadol (Tramadol) 50 Mg Tab 50 MG PO Q6H PRN for PAIN, #20 TAB 0 Refills Amlodipine (Norvasc) 5 Mg Tab 5 MG PO DAILY for Blood Pressure Management for 30 Days, #30 TAB Continued Medications: Bupropion HCl ER 24 HR (Wellbutrin Xl 24 HR) 150 Mg Tab 150 MG PO DAILY for Control Depression, TAB 0 Refills Cetirizine (Cetirizine) 10 Mg Tab 10 MG DAILY for Allergies, TAB 0 Refills Citalopram (Citalopram) 40 Mg Tab 40 MG PO DAILY for Control Depression, #30 TAB 0 Refills Lorazepam (Lorazepam) 0.5 Mg Tab 0.5 MG PO Q6H PRN for ANXIETY, TAB 0 Refills Meclizine (Meclizine) 25 Mg Tab 25 MG PO DIRECTED PRN for VERTIGO, TAB 0 Refills Oxybutynin ER 24 HR (Oxybutynin ER 24 HR) 10 Mg Tab 10 MG PO DAILY for Overactive Bladder, TAB 0 Refills Thyroid ([place] Thyroid) 120 Mg Tab 120 MG PO DAILY for Thyroid Supplement, #30 TAB 0 Refills Bienvenido [place] May 30, 2017 15:30
== END 2017-05-30 11:18 | disposition home or self-care (01) | DRG 512 ==
LOC: PHED 18:54 → PHEDA 21:22 → PH3B 23:26
PROVIDERS: ADMIT Hospitalist; ATTEND Hospitalist
PROC: 01N50ZZ Release Median Nerve, Open Approach (ICD-10-PCS; 2017-05-27)
PROC: 0PUJ0KZ Supplement Left Radius with Nonautologous Tissue Substitute, Open Approach (ICD-10-PCS; 2017-05-27)
PROC: 3E0T3BZ Introduction of Anesthetic Agent into Peripheral Nerves and Plexi, Percutaneous Approach (ICD-10-PCS; 2017-05-27)
PROC: 0PSJ04Z Reposition Left Radius with Internal Fixation Device, Open Approach (ICD-10-PCS; principal; 2017-05-27 09:25)
DX: S52.572A Other intraarticular fracture of lower end of left radius, initial encounter for closed fracture (principal); N18.3 Chronic kidney disease, stage 3 (moderate); S52.612A Displaced fracture of left ulna styloid process, initial encounter for closed fracture; E03.9 Hypothyroidism, unspecified; D72.819 Decreased white blood cell count, unspecified; G56.02 Carpal tunnel syndrome, left upper limb; F41.9 Anxiety disorder, unspecified; W01.0XXA Fall on same level from slipping, tripping and stumbling without subsequent striking against object, initial encounter; Y93.01 Activity, walking, marching and hiking; Y92.008 Other place in unspecified non-institutional (private) residence as the place of occurrence of the external cause; Z88.5 Allergy status to narcotic agent; Z88.0 Allergy status to penicillin; Z88.2 Allergy status to sulfonamides
CPT/HCPCS: 71045; 73110; 73200; 76000; 76937; 80053; 85007; 85025; 85027; 85610; 85730; 93005; 99285; C1713; J2250; J2270; J2405; J7030; J7120